=== PATIENT | female | born 1985 | race American Indian/Alaskan Native ===

== ENCOUNTER 2016-10-15 02:44 | Emergency (ER) | payer MEDICAID ==
[2016-10-15 02:48] VITALS: BP 147/93
[2016-10-15] MEDS ORDERED: Alum Hydrox/Mag Hydrox/Simeth 30 ML, Lidocaine 2% 15 ML PO ONE ×2 (02:53)
[2016-10-15] MEDS ORDERED: Ketorolac 60 MG/2 ML SDV IM ONE (03:31)
--- NOTE | 2016-10-15 03:31 | EDM.PDOC ---
ED HPI GENERAL MEDICAL PROBLEM - General Chief Complaint: Abdominal Pain Stated Complaint: abdominal pain Time Seen by Provider: 10/15/16 03:20 Source of Information: Reports: Patient History Limitations: Reports: No Limitations - History of Present Illness INITIAL COMMENTS - FREE TEXT/NARRATIVE: Patient presents today with complaints of midepigastric abdominal pain. has been having issues with this off and on since May since her child was born. Had visited with Dr. Lindsey about this and was placed on Omeprazole. She hasn't really noted much improvement with this. gets episodes of pain like this every 2-3 weeks. Current episode started at around 10 pm last night. Does get nauseated, no vomiting. has not had any diarrhea or fevers. Nothing seems to relieve pain. does have an uncomfortable dullness in the RUQ most of the time but this is more severe and is a burning deep ache. Hasn't noted any particular food intolerances. Did not eat any spicy or greasy foods tonight. Onset: Gradual Duration: Hour(s): Location: Reports: Abdomen Quality: Reports: Ache, Sharp Severity: Moderate Improves with: Reports: None Associated Symptoms: Reports: Nausea/Vomiting. Denies: Chest Pain, Fever/Chills , Loss of Appetite, Shortness of Breath, Syncope, Weakness Middle Epigastric Pain Score (Numeric/FACES): 8 - Related Data Allergies Allergy/AdvReac Type Severity Reaction Status Date / Time No Known Allergies Allergy Verified 10/15/16 03:03 Home Meds: Home Meds Acetaminophen [Tylenol] 650 mg PO Q4HR PRN 07/31/14 [History] Ibuprofen 600 mg PO Q6H PRN 10/15/16 [History] Omeprazole 20 mg PO BID 10/15/16 [History] Ranitidine [Zantac] 150 mg PO DAILY PRN 10/15/16 [History] Past Medical History - Past Health History Medical/Surgical History: Denies Medical/Surgical History Gastrointestinal History: Reports: GERD [employer] History: Reports: Other OB/BYN History: miscarriage Social & Family History - Tobacco Use Smoking Status *Q: Current Every Day Smoker Years of Tobacco use: 17 Packs/Tins Daily: 0.5 Used Tobacco, but Quit: No - Caffeine Use Caffeine Use: Reports: None - Alcohol Use Days Per Week of Alcohol Use: 0 - Recreational Drug Use Recreational Drug Use: No ED ROS GENERAL - Review of Systems Review Of Systems: See Below Constitutional: Denies: Fever, Chills, Malaise, Weakness, Decreased Appetite HEENT: Reports: No Symptoms Respiratory: Reports: No Symptoms Cardiovascular: Reports: No Symptoms GI/Abdominal: Reports: Abdominal Pain, Nausea. Denies: Black Stool, Bloody Stool, Diarrhea, Vomiting : Reports: No Symptoms Musculoskeletal: Reports: No Symptoms Skin: Reports: No Symptoms ED EXAM, GI/ABD - Physical Exam Exam: See Below Exam Limited By: No Limitations General Appearance: Alert, WD/WN, No Apparent Distress Ears: Normal External Exam, Normal TMs Nose: Normal Inspection, No Blood Throat/Mouth: Normal Inspection, Normal Oropharynx Head: Normocephalic Neck: Normal Inspection, Supple, Non-Tender Respiratory/Chest: No Respiratory Distress, Lungs Clear, Normal Breath Sounds Cardiovascular: Normal Peripheral Pulses, Regular Rate, Rhythm GI/Abdominal: Normal Bowel Sounds, Soft, Non-Tender Neurological: Alert, Oriented Skin Exam: Warm, Dry Course - Vital Signs Last Recorded V/S: Last Vital Signs Temp 98.5 F 10/15/16 02:44 Pulse 78 10/15/16 02:44 Resp 18 10/15/16 02:44 BP 147/93 H 10/15/16 02:44 Pulse Ox 98 10/15/16 02:44 - Orders/Labs/Meds Labs: Laboratory Tests 10/15/16 10/15/16 10/15/16 Range/Units 03:10 03:10 03:10 WBC 10.8 H (5.0-10.0) 10^3/uL RBC 4.25 (4.00-5.50) 10^6/uL Hgb 12.3 (12.0-16.0) g/dL Hct 38.7 (37.0-47.0) % MCV 91.1 (82.0-94.0) fL MCH 28.9 (27.0-32.0) pg MCHC 31.8 L (33.0-38.0) g/dL RDW Coeff of Nadia 14.4 (11.0-15.0) % Plt Count 331 (150-400) 10^3/uL Neut % (Auto) 76.5 (35-85) % Lymph % (Auto) 15.1 (10-55) % [place] % (Auto) 5.0 (0-16) % Eos % (Auto) 3.0 (0-5) % Baso % (Auto) 0.4 (0-3) % Neut # (Auto) 8.29 H (1.80-7.00) 10^3/uL Lymph # (Auto) 1.63 (1.00-4.80) 10^3/uL [place] # (Auto) 0.54 (0.00-0.80) 10^3/uL Eos # (Auto) 0.33 (0.00-0.45) 10^3/uL Baso # (Auto) 0.04 10^3/uL Sodium 142 (136-145) mEq/L Potassium 3.8 (3.5-5.0) mEq/L Chloride 105 (98-106) mEq/L Carbon Dioxide 27 (21-32) mmol/L BUN 11 (7-18) mg/dL Creatinine 0.9 (0.6-1.0) mg/dL Est Cr Clr Drug Dosing 89.69 mL/min Estimated GFR (MDRD) > 60 (>=60) mL/min Glucose 121 H (75-99) mg/dL Calcium 8.4 (8.4-10.1) mg/dL Total Bilirubin 0.4 (0.0-1.0) mg/dL AST 84 H (15-37) U/L ALT 59 (12-78) U/L Alkaline Phosphatase 102 (46-116) U/L C-Reactive Protein 0.9 H (0.2-0.8) mg/dL Total Protein 7.3 (6.4-8.2) g/dL Albumin 3.4 (3.4-5.0) g/dL Amylase 33 (25-115) U/L Urine Color (YELLOW) Urine Appearance (CLEAR) Urine pH (4.5-8.0) Ur Specific [place] (1.003-1.020) Urine Protein (NEGATIVE) mg/dL Urine Glucose (UA) (NEGATIVE) mg/dL Urine Ketones (NEGATIVE) mg/dL Urine Occult Blood (NEGATIVE) Urine Nitrite (NEGATIVE) Urine Bilirubin (NEGATIVE) Urine Urobilinogen (0.2-1.0) EU/dL Ur Leukocyte Esterase (NEGATIVE) Urine RBC (0-5) /HPF Urine WBC (0-5) /HPF Ur Squamous Epith Cells (NOT SEEN) /HPF Urine Bacteria (NOT SEEN) /HPF Urine HCG, Qual Negative 10/15/16 Range/Units 03:10 WBC (5.0-10.0) 10^3/uL RBC (4.00-5.50) 10^6/uL Hgb (12.0-16.0) g/dL Hct (37.0-47.0) % MCV (82.0-94.0) fL MCH (27.0-32.0) pg MCHC (33.0-38.0) g/dL RDW Coeff of Nadia (11.0-15.0) % Plt Count (150-400) 10^3/uL Neut % (Auto) (35-85) % Lymph % (Auto) (10-55) % [place] % (Auto) (0-16) % Eos % (Auto) (0-5) % Baso % (Auto) (0-3) % Neut # (Auto) (1.80-7.00) 10^3/uL Lymph # (Auto) (1.00-4.80) 10^3/uL [place] # (Auto) (0.00-0.80) 10^3/uL Eos # (Auto) (0.00-0.45) 10^3/uL Baso # (Auto) 10^3/uL Sodium (136-145) mEq/L Potassium (3.5-5.0) mEq/L Chloride (98-106) mEq/L Carbon Dioxide (21-32) mmol/L BUN (7-18) mg/dL Creatinine (0.6-1.0) mg/dL Est Cr Clr Drug Dosing mL/min Estimated GFR (MDRD) (>=60) mL/min Glucose (75-99) mg/dL Calcium (8.4-10.1) mg/dL Total Bilirubin (0.0-1.0) mg/dL AST (15-37) U/L ALT (12-78) U/L Alkaline Phosphatase (46-116) U/L C-Reactive Protein (0.2-0.8) mg/dL Total Protein (6.4-8.2) g/dL Albumin (3.4-5.0) g/dL Amylase (25-115) U/L Urine Color Yellow (YELLOW) Urine Appearance Clear (CLEAR) Urine pH 7.0 (4.5-8.0) Ur Specific [place] 1.015 (1.003-1.020) Urine Protein Negative (NEGATIVE) mg/dL Urine Glucose (UA) Negative (NEGATIVE) mg/dL Urine Ketones Negative (NEGATIVE) mg/dL Urine Occult Blood Trace-intact H (NEGATIVE) Urine Nitrite Negative (NEGATIVE) Urine Bilirubin Negative (NEGATIVE) Urine Urobilinogen 1.0 (0.2-1.0) EU/dL Ur Leukocyte Esterase Trace H (NEGATIVE) Urine RBC 0-5 (0-5) /HPF Urine WBC 0-5 (0-5) /HPF Ur Squamous Epith Cells Few H (NOT SEEN) /HPF Urine Bacteria Occasional H (NOT SEEN) /HPF Urine HCG, Qual Meds: Medications Discontinued Medications Generic Name Dose Route Start Last Admin Trade Name Freq PRN Reason Stop Dose Admin Al Hydroxide/Mg Hydroxide 30 0 ml 10/15/16 02:53 10/15/16 02:58 ml/ Lidocaine HCl 15 ml PO 10/15/16 02:54 30 ml ONETIME ONE Administration Ketorolac Tromethamine 60 mg 10/15/16 03:31 10/15/16 03:35 Toradol IM 10/15/16 03:32 60 mg ONETIME ONE Administration - Re-Assessments/Exams Free Text/Narrative Re-Assessment/Exam: 10/15/16 03:40 Labs reviewed. Mild UTI noted. Toradol given. Other results negative. Departure - Departure Time of Disposition: 03:41 Disposition: Home, Self-Care 01 Clinical Impression: UTI (urinary tract infection) Abdominal pain Qualifiers: Abdominal location: right upper quadrant Qualified Code(s): R10.11 - Right upper quadrant pain - Discharge Information Forms: ED Department Discharge Additional Instructions: 1. Push fluids 2. [place] diet 3. Tylenol for discomfort 4. Continue Omeprazole 5. Bactrim twice a day for [address] Lindsey and consider gallbladder work up
[2016-10-15 03:36] LABS: CHLORIDE,CL 105 mEq/L (98-106); SODIUM,NA 142 mEq/L (136-145)
== END 2016-10-15 03:48 | disposition home or self-care (01) ==
LOC: CC.ED 02:44
DX: N39.0 Urinary tract infection, site not specified (principal); R10.11 Right upper quadrant pain; K21.9 Gastro-esophageal reflux disease without esophagitis; F17.210 Nicotine dependence, cigarettes, uncomplicated; Z79.899 Other long term (current) drug therapy
CPT/HCPCS: 36415; 80053; 81001; 81025; 82150; 85025; 86140; 96372; 99284; A9270; J1885

== ENCOUNTER 2016-11-28 11:15 | Emergency (ER) | payer MEDICAID ==
[2016-11-28 11:23] VITALS: BP 150/99
[2016-11-28 11:53] LABS: CHLORIDE,CL 104 mEq/L (98-106); SODIUM,NA 142 mEq/L (136-145)
[2016-11-28] MEDS ORDERED: Ketorolac 60 MG/2 ML SDV IM ONE (12:03)
--- NOTE | 2016-11-28 12:22 | EDM.PDOC ---
ED HPI GENERAL MEDICAL PROBLEM - General Chief Complaint: Abdominal Pain Stated Complaint: my stomach hurts Time Seen by Provider: 11/28/16 11:41 Source of Information: Reports: Patient History Limitations: Reports: No Limitations - History of Present Illness INITIAL COMMENTS - FREE TEXT/NARRATIVE: Patient presents today with complaints of midepigastric abdominal pain. Has a history of cholelithiasis and is scheduled to have surgery on December 24. Has been trying to watch what she eats to prevent attacks. Has had recurring pain about every 3 weeks. Last night had a salad and grilled chicken and since then hasn't felt good. Now feeling again more bloated and uncomfortable. Also concerned that she could be . States took a test at home that was questionable. Patient did feel nauseated last evening, no vomiting. Denies any urinary concerns. No fevers. No constipation or diarrhea. Onset: Gradual Duration: Hour(s):, [place] Location: Reports: Abdomen Quality: Reports: Sharp Severity: Moderate Worsens with: Reports: Eating Associated Symptoms: Denies: Fever/Chills, Nausea/Vomiting Treatments UMBRELLA TIPPER: Reports: Acetaminophen Middle Abdomen Pain Score (Numeric/FACES): 8 - Related Data Allergies Allergy/AdvReac Type Severity Reaction Status Date / Time No Known Allergies Allergy Verified 11/28/16 11:19 Home Meds: Home Meds Acetaminophen [Tylenol] 650 mg PO Q4HR PRN 07/31/14 [History] Ibuprofen 600 mg PO Q6H PRN 10/15/16 [History] Omeprazole 20 mg PO BID 10/15/16 [History] Ranitidine [Zantac] 150 mg PO DAILY PRN 10/15/16 [History] Promethazine HCl 12.5 mg PO TID PRN 11/28/16 [History] Past Medical History - Past Health History Medical/Surgical History: Denies Medical/Surgical History Gastrointestinal History: Reports: GERD [employer] History: Reports: Other OB/BYN History: miscarriage Social & Family History - Tobacco Use Smoking Status *Q: Current Every Day Smoker Years of Tobacco use: 17 Packs/Tins Daily: 1 Used Tobacco, but Quit: No - Caffeine Use Caffeine Use: Reports: Coffee - Alcohol Use Days Per Week of Alcohol Use: 0 - Recreational Drug Use Recreational Drug Use: No ED ROS GENERAL - Review of Systems Review Of Systems: See Below Constitutional: Denies: Fever, Chills, Malaise, Weakness, Decreased Appetite HEENT: Reports: No Symptoms Respiratory: Denies: Shortness of Breath, Cough Cardiovascular: Denies: Chest Pain, Edema, Lightheadedness Endocrine: Denies: Fatigue GI/Abdominal: Reports: Abdominal Pain, Nausea. Denies: Constipation, Diarrhea, Hematochezia, Melena, Vomiting : Reports: No Symptoms Musculoskeletal: Reports: No Symptoms Skin: Reports: No Symptoms Neurological: Reports: No Symptoms ED EXAM, GI/ABD - Physical Exam Exam: See Below Exam Limited By: No Limitations General Appearance: Alert, WD/WN, No Apparent Distress Ears: Normal External Exam, Normal TMs Nose: Normal Inspection, Normal Mucosa, No Blood Throat/Mouth: Normal Inspection, Normal Oropharynx Head: Normocephalic Neck: Normal Inspection, Supple, Non-Tender Respiratory/Chest: No Respiratory Distress, Lungs Clear, Normal Breath Sounds Cardiovascular: Regular Rate, Rhythm GI/Abdominal Exam: Normal Bowel Sounds, Soft, Tender (midepigastric area/RUQ area) Neurological: Alert, Oriented Psychiatric: Normal Affect, Normal Mood Skin Exam: Warm, Dry Course - Vital Signs Last Recorded V/S: Last Vital Signs Temp 97.6 F 11/28/16 11:20 Pulse 67 11/28/16 11:20 Resp 20 11/28/16 11:20 BP 150/99 H 11/28/16 11:20 Pulse Ox 98 11/28/16 11:20 - Orders/Labs/Meds Labs: Laboratory Tests 11/28/16 11/28/16 11/28/16 Range/Units 11:28 11:28 11:32 WBC (5.0-10.0) 10^3/uL RBC (4.00-5.50) 10^6/uL Hgb (12.0-16.0) g/dL Hct (37.0-47.0) % MCV (82.0-94.0) fL MCH (27.0-32.0) pg MCHC (33.0-38.0) g/dL RDW Coeff of Nadia (11.0-15.0) % Plt Count (150-400) 10^3/uL Neut % (Auto) (35-85) % Lymph % (Auto) (10-55) % [place] % (Auto) (0-16) % Eos % (Auto) (0-5) % Baso % (Auto) (0-3) % Neut # (Auto) (1.80-7.00) 10^3/uL Lymph # (Auto) (1.00-4.80) 10^3/uL [place] # (Auto) (0.00-0.80) 10^3/uL Eos # (Auto) (0.00-0.45) 10^3/uL Baso # (Auto) 10^3/uL Sodium 142 (136-145) mEq/L Potassium 4.1 (3.5-5.0) mEq/L Chloride 104 (98-106) mEq/L Carbon Dioxide 29 (21-32) mmol/L BUN 9 (7-18) mg/dL Creatinine 0.8 (0.6-1.0) mg/dL Est Cr Clr Drug Dosing 100.90 mL/min Estimated GFR (MDRD) > 60 (>=60) mL/min Glucose 111 H (75-99) mg/dL Calcium 9.1 (8.4-10.1) mg/dL Total Bilirubin 2.3 H (0.0-1.0) mg/dL AST 497 H* (15-37) U/L ALT 308 H* (12-78) U/L Alkaline Phosphatase 168 H (46-116) U/L C-Reactive Protein 0.3 (0.2-0.8) mg/dL Total Protein 7.3 (6.4-8.2) g/dL Albumin 3.6 (3.4-5.0) g/dL Urine Color Yellow (YELLOW) Urine Appearance Clear (CLEAR) Urine pH 5.5 (4.5-8.0) Ur Specific [place] 1.019 (1.003-1.020) Urine Protein Negative (NEGATIVE) mg/dL Urine Glucose (UA) Negative (NEGATIVE) mg/dL Urine Ketones Negative (NEGATIVE) mg/dL Urine Occult Blood Small H (NEGATIVE) Urine Nitrite Negative (NEGATIVE) Urine Bilirubin Moderate H (NEGATIVE) Urine Urobilinogen 1.0 (0.2-1.0) EU/dL Ur Leukocyte Esterase Trace H (NEGATIVE) Urine RBC 0-5 (0-5) /HPF Urine WBC 0-5 (0-5) /HPF Ur Epithelial Cells Moderate H (NOT SEEN) /HPF Urine Mucus Few H (NOT SEEN) /HPF Urine HCG, Qual Negative 11/28/16 Range/Units 11:35 WBC 6.6 (5.0-10.0) 10^3/uL RBC 5.01 (4.00-5.50) 10^6/uL Hgb 14.5 (12.0-16.0) g/dL Hct 44.8 (37.0-47.0) % MCV 89.4 (82.0-94.0) fL MCH 28.9 (27.0-32.0) pg MCHC 32.4 L (33.0-38.0) g/dL RDW Coeff of Nadia 13.6 (11.0-15.0) % Plt Count 336 (150-400) 10^3/uL Neut % (Auto) 65.4 (35-85) % Lymph % (Auto) 21.3 (10-55) % [place] % (Auto) 8.8 (0-16) % Eos % (Auto) 4.2 (0-5) % Baso % (Auto) 0.3 (0-3) % Neut # (Auto) 4.32 (1.80-7.00) 10^3/uL Lymph # (Auto) 1.41 (1.00-4.80) 10^3/uL [place] # (Auto) 0.58 (0.00-0.80) 10^3/uL Eos # (Auto) 0.28 (0.00-0.45) 10^3/uL Baso # (Auto) 0.02 10^3/uL Sodium (136-145) mEq/L Potassium (3.5-5.0) mEq/L Chloride (98-106) mEq/L Carbon Dioxide (21-32) mmol/L BUN (7-18) mg/dL Creatinine (0.6-1.0) mg/dL Est Cr Clr Drug Dosing mL/min Estimated GFR (MDRD) (>=60) mL/min Glucose (75-99) mg/dL Calcium (8.4-10.1) mg/dL Total Bilirubin (0.0-1.0) mg/dL AST (15-37) U/L ALT (12-78) U/L Alkaline Phosphatase (46-116) U/L C-Reactive Protein (0.2-0.8) mg/dL Total Protein (6.4-8.2) g/dL Albumin (3.4-5.0) g/dL Urine Color (YELLOW) Urine Appearance (CLEAR) Urine pH (4.5-8.0) Ur Specific [place] (1.003-1.020) Urine Protein (NEGATIVE) mg/dL Urine Glucose (UA) (NEGATIVE) mg/dL Urine Ketones (NEGATIVE) mg/dL Urine Occult Blood (NEGATIVE) Urine Nitrite (NEGATIVE) Urine Bilirubin (NEGATIVE) Urine Urobilinogen (0.2-1.0) EU/dL Ur Leukocyte Esterase (NEGATIVE) Urine RBC (0-5) /HPF Urine WBC (0-5) /HPF Ur Epithelial Cells (NOT SEEN) /HPF Urine Mucus (NOT SEEN) /HPF Urine HCG, Qual Meds: Medications Discontinued Medications Generic Name Dose Route Start Last Admin Trade Name Freq PRN Reason Stop Dose Admin Ketorolac Tromethamine 60 mg 11/28/16 12:03 11/28/16 12:07 Toradol IM 11/28/16 12:04 60 mg ONETIME ONE Administration - Re-Assessments/Exams Free Text/Narrative Re-Assessment/Exam: 11/28/16 12:15 Reviewed results with patient. Does have elevated liver enzymes, likely related to her cholelithiasis. Will forward these results to Dr. Lindsey. Was given Toradol and is feeling some improvement with that. Departure - Departure Time of Disposition: 12:20 Disposition: Home, Self-Care 01 Condition: Good Clinical Impression: Cholelithiasis - Discharge Information Referrals: Alejandra Lindsey MD [Primary Care Provider] - Forms: ED Department Discharge Additional Instructions: 1. Rest 2. Push fluids 3. [place] diet 4. Proceed with surgery as planned on December 24. 5. Catherine 5/326 one to two tabs as needed for pain with attacks. 6. Call with questions or follow up with Dr. Lindsey if ongoing pain
== END 2016-11-28 12:30 | disposition home or self-care (01) ==
LOC: CC.ED 11:15
DX: K80.20 Calculus of gallbladder without cholecystitis without obstruction (principal); K21.9 Gastro-esophageal reflux disease without esophagitis; F17.210 Nicotine dependence, cigarettes, uncomplicated
CPT/HCPCS: 36415; 80053; 81001; 81025; 85025; 86140; 96372; 99284; J1885